=== PATIENT | male | born 1965 | race Hispanic/Latino ===

== ENCOUNTER 2019-06-16 15:37 | Emergency (ER) | payer OTHER ==
[~2019-06-16] VITALS: Ht 175.3 cm; Wt 99.8 kg
[~2019-06-16 15:37] MED LIST: ALLERGY RELIEF10 M4 PO; ALLOPURINOL100 MG PO; AMOXICILLIN500 MG PO; CARAFATE1 GM PO; CHLORTHALIDONE25 MG PO; CLARITHROMYCIN500 MG PO; COLCRYS0.6 MG PO; DULOXETINE HCL30 MG PO; FERROUS GLUCON324 M2 PO; LISINOPRIL10 MG PO; OMEPRAZOLE20 MG PO
[2019-06-16] MEDS ORDERED: ZYRTEC10 M3 PO (15:55)
[2019-06-16] MEDS ORDERED: SURFAK240 MG PO (15:56)
[2019-06-16] MEDS ORDERED: PAMELOR25 MG PO (15:57)
[2019-06-16] MEDS ORDERED: TIROSINT50 MCG PO (15:57)
[2019-06-16] MEDS ORDERED: FERROUS GLUCON324 M1 PO (15:58)
== END 2019-06-16 18:20 | disposition home or self-care (01) ==
LOC: ED 15:37
DX: K92.2 Gastrointestinal hemorrhage, unspecified (principal); D64.9 Anemia, unspecified; Z88.1 Allergy status to other antibiotic agents; Z88.8 Allergy status to other drugs, medicaments and biological substances; Z79.899 Other long term (current) drug therapy
CPT/HCPCS: 80053; 81001; 83690; 83735; 85025; 99284

== ENCOUNTER 2019-07-17 13:29 | Day surgery (SDC) | payer OTHER ==
[~2019-07-17] VITALS: Ht 175.3 cm; Wt 103.0 kg
--- NOTE | ~2019-07-17 | OR ---
[facility] [address], [place] [address] Draft DATE OF OPERATION: 07/17/2019 SURGEON: Ahsan Montes MD PREOPERATIVE DIAGNOSIS: Recurrent profound rectal bleeding (bright blood, painless). POSTOPERATIVE DIAGNOSES: 1. Normal-appearing colon and ileum up to 20 cm. 2. Internal hemorrhoids (possible source of bleeding, not actively bleeding now). PROCEDURE PERFORMED: Total colonoscopy to cecum with intubation of ileum approximately 20 cm. ANESTHESIA: Intravenous sedation, fentanyl 150 mcg and Versed 5 mg. INDICATION: This 53-year-old man is a prisoner at [facility]. He was evaluated by me in the past with upper endoscopy and colonoscopy for a decreased hematocrit (28.3 in April of 2019), elevated reticulocyte count 81.7. 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 Urgent upper endoscopy showed mild gastritis, but no sign of other abnormality or anything to account for anemia. His lowest hematocrit was 24.9 in April of 2019. He has had no hematemesis, but has had recurrent episodes a few days ago with bright blood per rectum. He is referred for urgent colonoscopy by Dr. Reynoso, his managing physician at [facility]. He understands the risks of bleeding, infection, and perforation related to colonoscopy and wished to proceed. FINDINGS: The prep was excellent. Complete colonoscopy was undertaken to the cecum. Intubation of the ileum was undertaken as well, almost to 20 cm, showing no sign of blood in the small bowel and no lesion of the ileum. The colon was entirely normal except for a retroflexed view, which demonstrated internal hemorrhoids, which were significant. They were not actively bleeding. It is my supposition that his anemia bleeding is from his hemorrhoids, however uncommon that maybe. DESCRIPTION OF PROCEDURE: The patient was brought to the endoscopy suite and placed in lateral decubitus position, given intravenous sedation to the point of slurred speech and nystagmus. Digital rectal PATIENT NAME: VITO PRESSLEY OPERATIVE REPORT DATE OF : 67 REPORT #: [id number] PHYSICIAN: AHSAN MONTES MD PCP: SRINIVASAN REYNOSO MD REPORT IS CONFIDENTIAL AND NOT TO BE RELEASED WITHOUT AUTHORIZATION [facility] [address], [place] [address] Draft examination was normal. An Olympus video colonoscope was passed in the rectum and manipulated throughout the colon. Impressive indeed was the level of the bowel prep, which was essentially perfect. The scope was ultimately advanced to the cecum. The ileocecal valve and appendiceal orifice were normal. The ileum was easily intubated and the scope passed as far as possible estimating at approximately 20 cm into the ileum showing no sign of blood upstream, no sign of lesions of the ileum. Scope was withdrawn ultimately to the cecum and then withdrawal of scope undertaken further. There was no abnormality of the entire colon and rectum except on retroflexed view, in which case there were hemorrhoidal changes and there were areas that seem to be erosive. There is certainly no sign of active bleeding at this time. The scope was straightened, withdrawn, and photographs were taken as the scope was withdrawn to the anal canal. The scope was removed and the patient taken to recovery room in good condition. CONCLUDING DIAGNOSES: Certainly possible is bright red rectal bleeding, which is profound related to hemorrhoids. Management could include internal hemorrhoidal banding in the office setting. We will review this with Dr. Reynoso. MD JANESSA Burks/CARLOS EDUARDO /[id number] cc: Srinivasan Reynoso MD Copies: SRINIVASAN REYNOSO MD ~ PATIENT NAME: VITO PRESSLEY OPERATIVE REPORT DATE OF : 67 REPORT #: [id number] PHYSICIAN: AHSAN MONTES MD PCP: SRINIVASAN REYNOSO MD REPORT IS CONFIDENTIAL AND NOT TO BE RELEASED WITHOUT AUTHORIZATION
[~2019-07-17 13:29] MED LIST changes: +FERROUS GLUCON324 M1 PO; +PAMELOR25 MG PO; +SURFAK240 MG PO; +TIROSINT50 MCG PO; +ZYRTEC10 M3 PO
--- NOTE | 2019-07-17 15:00 | NUR ---
07/17/19 1500 Sophy Cooley 2645-PATIENT ARRIVED TO PACU ON 2L NC DROWSY AROUSES TO VERBAL STIMULI ABDOMEN SOFT. GUARDS AT BEDSIDE. PATIENT DOZES BACK TO SLEEP.
== END 2019-07-17 15:42 | disposition home or self-care (01) ==
LOC: DS 13:29 → OPS 13:29 → DS 14:00 → OPS 14:00
PROVIDERS: Surgery
PROC: 0DJD8ZZ Inspection of Lower Intestinal Tract, Via Natural or Artificial Opening Endoscopic (ICD-10-PCS; principal; 2019-07-17 14:00)
DX: K64.8 Other hemorrhoids (principal); D50.9 Iron deficiency anemia, unspecified; I10 Essential (primary) hypertension; F32.9 Major depressive disorder, single episode, unspecified; G47.30 Sleep apnea, unspecified; A15.9 Respiratory tuberculosis unspecified
CPT/HCPCS: 99153; G0500; J2250; J3010; J7120

== ENCOUNTER 2021-03-01 12:56 | Observation (INO) | payer OTHER ==
[~2021-03-01] VITALS: Ht 175.3 cm; Wt 100.1 kg
--- NOTE | 2021-03-01 16:20 | NUR ---
Pt arrives to med surg floor via stretcher. 2 correctional officers alongside. Pt able to transfer self to bed SBA. Assessment and HX complete, VSS, pt A+O. pt reports chronic back pain, no pain related to admission diagnosis. IVF infusing WNL. Pt NPO. Reviewed plan of care, pt is agreeable. Oriented to room, no needs at this time. Call light within reach.
--- NOTE | 2021-03-01 19:15 | NUR ---
SHIFT REPORT RECEIVED FROM HARLEY GIBSON AT THIS TIME, pt AWAKE AND RESTING IN BED. [facility] GUARDS X2 ALSO IN ROOM. SCD'S IN PLACE. IV FLUIDS INFUSING PER MD ORDERS, SITE WNL. NO NEEDS VERBALIZED, CALL LIGHT IN REACH.
--- NOTE | 2021-03-01 20:07 | NUR ---
DIE TRY OUT WORKER STAMPING RN NOTIFIED OF NEED FOR BOWEL PREP. WILL BRING TO FLOOR SOON POSSIBLE.
--- NOTE | 2021-03-01 20:15 | NUR ---
ASSESSMENT COMPLETE, SCHEDULED MEDS GIVEN, SEE EMAR. IV FLUIDS INFUSING PER MD ORDERS, SITE WNL. BRISK BLOOD RETURN NOTED. pt A/OX4, VSS. I&O'S ALSO DONE AND STABLE. FRESH WATER AT BEDSIDE, NO FURTHER NEEDS VERBALIZED. CALL LIGHT IN REACH. [facility] GUARDS X2 IN ROOM.
--- NOTE | 2021-03-01 20:49 | NUR ---
FIRST BOWEL PREP BOTTLE MIXED AND PROVIDED TO PATIENT. INSTRUCTIONS PROVIDED. GUARDS IN ROOM.
--- NOTE | 2021-03-01 21:20 | NUR ---
SECOND HALF OF BOWEL PREP PROVIDED TO PATIENT. RESTING IN BED, GUARDS IN ROOM.
--- NOTE | 2021-03-01 22:00 | NUR ---
SCHEDULED TYLENOL GIVEN, SEE EMAR. pt DENIES PAIN, BUT REPORTS SOME DISCOMFORT/ABD CRAMPING D/T BOWEL PREP. NO FURTHER NEEDS, pt WORKING ON LAST HALF OF BOWEL PREP. CALL LIGHT IN REACH.
--- NOTE | 2021-03-01 22:15 | NUR ---
BOWEL PREP COMPLETE AT THIS TIME, NO ADDITIONAL NEEDS VERBALIZED. CALL LIGHT IN REACH.
--- NOTE | 2021-03-01 22:30 | NUR ---
POST-OP VSS, pt REMAINS IN RA, CPOX IN PLACE. DAUGHTER ALSO IN ROOM. pt'S FOREHEAD SWEATY, pt REPORTS FEELING WARM. AFEBRILE, EXCESS BLANKETS REMOVED AND THERMOMETER DECREASED. WET WASH CLOTH PROVIDED TO WIPE FACE. WILL MONITOR. pt DEMONSTRATED USE OF IS, REACHED 1250. NO FURTHER NEEDS, CALL LIGHT IN REACH.
--- NOTE | 2021-03-01 23:21 | NUR ---
CALL LIGHT ANSWERED, pt HAD VERY LARGE SOFT BUT FORMED STOOL AND UNMEASURED VOID X1. BROWN/GREEN IN COLOR, NO MINERVA BLOOD NOTED AT THIS TIME. WILL CONTINUE TO MONITOR. NO FURTHER NEEDS, [facility] GUARDS X2 ALSO IN ROOM. CALL LIGHT IN REACH.
--- NOTE | 2021-03-01 23:30 | NUR ---
POST-OP VSS, pt RESTING COMFORTABLY IN BED. DENIES NEEDS OR CONCERNS, CPOX IN PLACE. pt ON RA, RR EVEN AND UNLABORED. CALL LIGHT IN REACH.
--- NOTE | 2021-03-02 00:46 | NUR ---
pt RESTING IN BED, AWAKE. FRESH WATER PROVIDED, NO ADDITIONAL NEEDS. CALL LIGHT IN REACH. [facility] GUARDS IN ROOM.
--- NOTE | 2021-03-02 01:08 | NUR ---
CALL LIGHT ANSWERERED, pt HAD LIQUID BM, DARK GREEN IN COLOR. NO SIGNS OF BLOOD NOTED, WILL MONITOR. ALSO REPORTS UNMEASURED VOID. NO ADDITIONAL NEEDS VERBALIZED, CALL LIGHT IN REACH.
--- NOTE | 2021-03-02 01:25 | NUR ---
ASSESSMENT COMPLETE, NO NEW CHANGES OR CONCERNS. BOWEL TONES ACTIVE, pt DENIES NAUSEA. NEW BAG IV FLUIDS HUNG AND INFUSING PER MD ORDERS, SITE WNL. NO ADDITIONAL NEEDS, pt DECLINES SCD'S D/T COMPLETION OF BOWEL PREP AND GETTING OOB FOR BM'S. REPORTS 4/10 PAIN R/T HEADACHE, DECLINES NEED FOR COOL RAG, PAIN MEDICATION, ECT. CALL LIGHT IN REACH.
--- NOTE | 2021-03-02 03:35 | NUR ---
CALL LIGHT ANSWERED, 300MLS LIQUID GREEN BM NOTED WITH UNMEASURED URINE OUTPUT. pt DENIES ADDITIONAL NEEDS, CALL LIGHT IN REACH.
--- NOTE | 2021-03-02 05:45 | NUR ---
IN TO GET VITALS, PT HAS NO FURTHER OUTPUT AT THIS TIME, FRESH ICE WATER GIVEN, NO FURTHER NEEDS AT THIS TIME
--- NOTE | 2021-03-02 05:48 | NUR ---
scheduled tylenol given for 5/10 pain, see emar. iv pump cleared, infusing per md orders, site wnl. no additional needs, call light in reach.
--- NOTE | 2021-03-02 07:05 | NUR ---
dr ramires made aware of critical hemoglobin result, telephone order read back to type and cross 2 units prbc, do not give until notified by md. md also updated on stool characteristics, telephone order read back to give second dose of bowel prep and allow PT to drink until 0900. rosa geronimo aware and updated on orders. second dose bowel prep given at this time, see emar.
--- NOTE | 2021-03-02 07:20 | NUR ---
Report received from Nerissa LOYD. Pt resting in bed, IVF infusing WNL. Continues bowel prep prior to procedure. States no needs at this time. Call light in reach, will continue plan of care.
--- NOTE | 2021-03-02 08:11 | NUR ---
PT AWAKE IN ROOM. TWO GAURDS IN ROOM. WHITE BOARD UPDATED. PT DRINKING GATORADES. CALL LIGHT WITHIN REACH. NO FURTHER NEEDS AT THIS TIME.
--- NOTE | 2021-03-02 09:30 | NUR ---
IV medication administered, pt resting in bed and states having stomach cramping related to bowel prep. Continues to have green liquid BM. Order received for blood administration, consent signed and pt educated thoroughly about process. NPO at this time, call light in reach, will cont to monitor.
--- NOTE | 2021-03-02 09:55 | NUR ---
Blood adminstration started. VSS. Consent signed, pt educated and verbalizes understanding of process. Verified with second RN. Administration per protocol.
--- NOTE | 2021-03-02 10:29 | NUR ---
CASE MANAGEMENT ASSESSMENT COMPLETE. PATIENT CURRENTLY RESIDES AT [facility]. PATIENT IS ESTABLISHED WITH A PCP PROVIDED BY [facility] AND IS SEEN BY DR. MONTES IN [facility].
--- NOTE | 2021-03-02 11:00 | NUR ---
Blood administration rate increased as to meet MD ordered timeline. Verified with second RN. Pt is stable with no c/o transfusion reaction symptoms. Call light in reach, continuing to monitor
--- NOTE | 2021-03-02 12:45 | NUR ---
Blood transfusion complete, VSS and patient denies any signs of transfusion reaction. Pt educated about procedure and verbalizes understanding, all questions asked and concerns addressed. Preprocedure checklist complete. FREIGHT CAR REPAIRER arrives to take pt to procedure on stretcher.
--- NOTE | 2021-03-02 13:56 | NUR ---
03/02/21 1356 Sheets,Maru 1347 PT ARRIVED TO PACU ON 2L VIA NC, VSS. RESP EVEN AND UNLABORED. 1354 PT WAKES TO TACTILE STIMULI AND DENIES PAIN. PT REPORTS TIGHTNESS IN ABD, RN ENCOURAGES PT TO PASS GAS/AIR. PT EASILY FALLS BACK TO SLEEP AND SNORING NOTED.
--- NOTE | 2021-03-02 15:10 | NUR ---
Pt arrives to med surg floor after procedure, able to stand and ambulate to bed from stretcher. VSS. IVF infusing per order. Pt states 6/10 ABD discomfort related to passing gas/tightness. Scheduled tylenol administered, pt tolerates sips of water at this time. Reviewed plan of care to which pt is agreeable.
--- NOTE | 2021-03-02 15:45 | NUR ---
Rounded on patient, states he has been passing gas and is doing well overall. IVF infusing WNL. Eyes closed, even and unlabored respirations. Will continue to monitor.
--- NOTE | 2021-03-02 16:20 | NUR ---
Pt resting in bed with eyes closed. 2 officers in room with pt. No apparent needs at this time.
--- NOTE | 2021-03-02 18:11 | NUR ---
PT IS RESTING IN BED. CALL LIGHT WITHIN REACH. ONE GAURD IN ROOM. CALL LIGHT WITHIN REACH. NO FURTHER NEEDS AT THIS TIME.
--- NOTE | 2021-03-02 18:53 | NUR ---
Pt medicated with lisinopril per regular home order. Pt sitting at edge of bed, states feeling better after passing some gas. IVF infusing WNL. Pt has regular diet for dinner, encouraged to take it slow to prevent possible nausea, verbalizes understanding. no other needs at this time, call light in reach.
--- NOTE | 2021-03-02 19:47 | NUR ---
BEDSIDE REPORT RECEIVED FROM EVERT GIBSON. pt RESTING IN BED. IVF INFUSING WNL. NO REQUESTS AT THIS TIME. PHONE CALL TO , VERIFIED REGULAR DIET OKAY UP UNTIL PROCEDURE.
--- NOTE | 2021-03-02 22:00 | NUR ---
PATIENT ASSESSMENT COMPLETE. PATIENT PASSING GAS. REQUESTING SANDWICH BOX AND PUDDING. BOWEL TONES ACTIVE. ABD SOFT, TENDER WITH PALPATION. SCDS ON. ICE WATER REFILLED. IV SITE FLUSHED WNL, IVF INFUSING ORDERED. CALL LIGHT IN REACH. GUARDS IN ROOM.
--- NOTE | 2021-03-02 23:52 | NUR ---
CHECKED ON pt. RESTING IN BED WATCHING TV. SANDWICH BOX PROVIDED REQUESTED. GUARDS IN ROOM.
--- NOTE | 2021-03-03 02:34 | NUR ---
PATIENT RESTING IN BED WITH EYES CLOSED, APPEARS TO BE SLEEPING. GUARDS IN ROOM.
--- NOTE | 2021-03-03 05:55 | NUR ---
IV ALARM SOUNDING. PT WOKE TO SOUND, BUT CLOSED EYES IMMEDIATELY. 2 GUARDS PRESENT IN ROOM. NO OTHER NEEDS.
--- NOTE | 2021-03-03 06:13 | NUR ---
pt UP TO RESTROOM FOR VOID, SBA. BACK TO BED. ASSESSMENT COMPLETE. pt DENIES ANY PAIN. NO RECTAL BLEEDING NOTED. VSS. BOWEL TONES ACTIVE, pt REPORTS FLATUS. IVF INFUSING WNL ORDERED. pt C/O SLIGHT ROSAS, DENIES TO RATE PAIN. GUARDS IN ROOM.
--- NOTE | 2021-03-03 07:25 | NUR ---
Report received from Waleska LOYD. Pt resting in bed, IVF infusing WNL, states no needs or pain at this time. Call light in reach, will continue plan of care.
--- NOTE | 2021-03-03 08:55 | NUR ---
Scheduled meds administered, IVF infusing WNL. Pt assessment WNL, states passing gas and feeling generally well. Bowel tones active. No rectal bleeding noted per pt report. Dr Freeman in room to discuss today's procedure with pt. Call light in reach.
--- NOTE | 2021-03-03 11:35 | PATH ---
[facility] [address], [place] [address] Signed SPECIMEN(S): A DUODENUM SPECIMEN(S): B ANTRUM SPECIMEN(S): C ILEUM SPECIMEN SOURCE: A. DUODENUM B. ANTRUM C. ILEUM CLINICAL HISTORY: Anemia, history of stomach ulcer, hemorrhoids, rectal bleeding. Postop Dx: Normal upper scope; internal hemorrhoids. MICROSCOPIC DESCRIPTION: Histologic sections of all submitted blocks are examined by light microscopy. These findings, together with the gross examination, support the pathologic diagnosis. FINAL PATHOLOGIC DIAGNOSIS: A. Duodenum, biopsy: - Duodenal mucosa with no histopathologic abnormality. - Negative for increased intraepithelial lymphocytes or villous blunting. - Negative for dysplasia or malignancy. B. Stomach, antrum, biopsy: - Oxyntic mucosa with chronic, inactive gastritis. - Changes present as seen with proton pump inhibitor (PPI) therapy. - Negative for Helicobacter organisms on HE stain. - Negative for dysplasia or malignancy. C. Ileum, biopsy: - Ileal mucosa with no histopathologic abnormality. - Negative for active inflammation or granulomas. - Negative for dysplasia or malignancy. NAL:cml:C2NR GROSS DESCRIPTION: Three specimens are received in three containers labeled with "JR." A. The specimen, labeled "JR, 1," and designated on the requisition "duodenum biopsy," is received in formalin and consists of two fragments of pink-medley tissue (0.4 x 0.4 x 0.2 cm in aggregate). The specimen is submitted entirely in cassette (A1). B. The specimen, labeled "JR, 2," and designated on the requisition "antrum biopsy," is received in formalin and consists of three fragments of pink-medley PATIENT NAME: VITO PRESSLEY PATHOLOGY DATE OF : 67 REPORT #: [id number] PHYSICIAN: LYNETTE MEI PCP: TALITA ASH REPORT IS CONFIDENTIAL AND NOT TO BE RELEASED WITHOUT AUTHORIZATION [facility] [address], [place] [address] Signed tissue (0.3 x 0.3 x 0.1 cm in aggregate). The specimen is submitted entirely in cassette (B1). C. The specimen, labeled "JR, 3," and designated on the requisition "ileum biopsy," is received in formalin and consists of two fragments of pink-medley tissue (0.6 x 0.2 x 0.2 cm in aggregate). The specimen is submitted entirely in cassette (C1). AC (under the direct supervision of a pathologist) The Gross Description was prepared using a voice recognition system. The report was reviewed for accuracy; however, sound-alike word errors, addition and/or deletions may occur. If there is any question about this report, please contact Client Services. PERFORMING LABORATORY: The technical component was performed by [employer] [address] [place] [id number] (Corporate Paralegal: Yarely Love MD; CLIA# [id number]). Professional interpretation was performed by [employer], [address] [address] (CLIA# [id number]). Diagnostician: Angie Chin MD Pathologist Electronically Signed 03/03/2021 Copies: ~ PATIENT NAME: VITO PRESSLEY PATHOLOGY DATE OF : 67 REPORT #: [id number] PHYSICIAN: LYNETTE MEI PCP: TALITA ASH REPORT IS CONFIDENTIAL AND NOT TO BE RELEASED WITHOUT AUTHORIZATION
--- NOTE | 2021-03-03 12:13 | NUR ---
Rounded on patient, sitting up in bed eating lunch. Pt reports no nausea or pain. IVF infusing WNL. No needs at this time. Call light in reach.
--- NOTE | 2021-03-03 12:25 | NUR ---
PATIENT AWAITING PROCEDURE WITH DR. MONTES. NO CHANGES IN DISCHARGE PLANNING AT THIS TIME.
[2021-03-03] MEDS ORDERED: ACETAMINOPHEN500 MG PO (13:06)
[2021-03-03] MEDS ORDERED: METAMUCIL PACK3.4 GM PO (13:07)
[2021-03-03] MEDS ORDERED: MIRALAX17 GM PO (13:08)
--- NOTE | 2021-03-03 13:49 | NUR ---
PT LAST SET OF VITALS COMPLETE. PT READY FOR DC.
--- NOTE | 2021-03-03 13:52 | NUR ---
DISCHARGE TEACHING PROVIDED, ALL QUESTIONS ANSWERED AND CONCERNS ADDRESSED. VITALS TAKEN, STABLE. IV REMOVED, CATH INTACT. PT TAKEN TO [facility] VIA WHEELCHAIR, TWO CORRECTIONAL OFFICERS AT SIDE. [facility] CALLED FOR REPORT
--- NOTE | 2021-03-07 10:51 | OR ---
[facility] [address], [place] [address] Signed DATE OF OPERATION: 03/02/2021 SURGEON: Ahsan Montes MD PREOPERATIVE DIAGNOSES: 1. Enigmatic recurrent anemia. 2. Known history of internal hemorrhoids; last colonoscopy in 2019 without other lesions. POSTOPERATIVE DIAGNOSES: 1. Normal upper endoscopy. 2. Normal-appearing colon and ilium to 15 cm, but with large internal hemorrhoidal changes. PROCEDURES: 1. Esophagogastroduodenoscopy with biopsy. 2. Total colonoscopy to cecum with intubation of ileum. ANESTHESIA: Intravenous sedation; fentanyl 150 mcg, Versed 6 mg total. INDICATION: This 55-year-old man is a patient of Jacey Cameron and Bekah Ash at [facility]. In 2019, he underwent colonoscopy by pr, which showed only internal hemorrhoids, which were accounting for his anemia at that time. He was treated with iron supplementation, a fiber supplement and his anemia resolved. In the past several weeks, he was admitted to the infirmary at the [facility] under the direction of ERIC Mckinney, as he was noted to have episodic rectal bleeding. He was known to have bowel movement every 3 days and hard stool noted and severe pain upon defecation, highly suggestive of fissure. His hematocrit is running between 25 and 26, previously up to 40. He has had no hematemesis or blood per rectum. It was not bright, but rather dark. He came to the emergency room yesterday and was directly admitted as he was noted to have persistent anemia and said to have dark blood per rectum and no improvement while under close observation in the infirmary for the past 2 weeks. Admission to the hospital shown him to have a hematocrit now of 21.7. He has undergone 2-unit blood transfusion. He has undergone a bowel prep, is now to undergo upper endoscopy and colonoscopy to better characterize the problem and assess the source of his anemia. The risks of bleeding, infection, and perforation related to upper endoscopy and colonoscopy was reviewed. He understands and wished to proceed. Electronically Signed By: AHSAN MONTES MD 03/07/21 1051 PATIENT NAME: VITO PRESSLEY OPERATIVE REPORT DATE OF : 67 REPORT #: [id number] PHYSICIAN: AHSAN MONTES MD PCP: TALITA ASH REPORT IS CONFIDENTIAL AND NOT TO BE RELEASED WITHOUT AUTHORIZATION [facility] [address], [place] [address] Signed FINDINGS: Upper endoscopy was essentially normal. Esophagus, stomach, and duodenum showed no lesion to account for anemia. Biopsies were taken to assess for occult H. pylori findings as well as celiac disease. On colonoscopy, the prep was quite excellent. Complete colonoscopy was undertaken of the cecum and intubation of the ileum for at least 15 cm and more likely 20 cm was accomplished. There was no evidence of blood within the gastrointestinal tract including the ileum or colon. Retroflexed view did confirm significant internal hemorrhoidal changes. There was no sign of active bleeding, however. DESCRIPTION OF PROCEDURE: The patient was brought to the endoscopy suite and placed in lateral decubitus position after undergoing topical Hurricaine spray hypopharyngeal anesthesia. A bite block was placed and an Olympus video upper endoscope passed in the hypopharynx. The vocal cords were normal. Scope was advanced to the esophagus without problem. Esophagus was examined, which was normal. Stomach was entered and rugal folds appeared normal. Motility was normal. There was no sign of gastritis. The pylorus was normal and non-deformed. The scope was passed through the pylorus into the duodenum. Duodenum was normal in every way. I saw no evidence of celiac disease. All biopsies were obtained there to assess for that as a known etiology for occult anemia. Scope was withdrawn and biopsies taken of the antrum for both CHECO and pathologic testing. Retroflexed view was undertaken showing a good flap valve and no lesion in the proximal stomach. The scope was straightened and withdrawn and esophageal findings were entirely normal. No sign of inflammation, varices, stricture, or other problem. Further withdrawal showed no other abnormalities. Care was taken and examination of the area of the vallecular showing no sign of varices or other problem there. A plan was then made for colonoscopy. Additional sedation was given and digital rectal examination performed showing no fissure. The anorectal area was examined at the bedside yesterday with good lighting showing no fissure either. The Olympus video colonoscope was passed in the rectum and manipulated. Careful inspection of the anal canal again confirmed no sign of fissure, only internal hemorrhoids. The scope was manipulated throughout the colon, ultimately intubating the cecum. The ileocecal valve and appendiceal orifice were normal. With various maneuvers, the colonoscope was inserted into the ileum and passed a good distance at least 15 to 20 cm showing no sign of ulceration, neoplasm, or blood. Careful withdrawal of scope allowed for biopsy of the ileum to assess for occult inflammation. Upon entering the cecum, there was no findings of concern. The appendiceal orifice was normal. Careful withdrawal of scope throughout showed no sign of abnormality to account for anemia. Retroflexion in the rectum did confirm significant internal hemorrhoidal changes, no sign of active bleeding at this time. Scope was removed and the patient was taken to the recovery room in good condition. Electronically Signed By: AHSAN MONTES MD 03/07/21 1051 PATIENT NAME: VITO PRESSLEY OPERATIVE REPORT DATE OF : 67 REPORT #: [id number] PHYSICIAN: AHSAN MONTES MD PCP: TALITA ASH REPORT IS CONFIDENTIAL AND NOT TO BE RELEASED WITHOUT AUTHORIZATION [facility] [address] [place], [place] [address] Signed CONCLUDING DIAGNOSIS: His episodic bleeding and proven anemia would either be related to the internal hemorrhoids or an occult lesion in the small bowel, not excessful by conventional endoscopic or colonoscopic approaches. Consideration would be made for hemorrhoidal banding. He has been transfused 2 units of packed red cells today already and has no evidence of bleeding at this time. MD JANESSA Burks/LENAL /[id number] cc: ERIC Browning [facility] Copies: JACEY CAMERON ~ Electronically Signed By: AHSAN MONTES MD 03/07/21 1051 PATIENT NAME: VITO PRESSLEY OPERATIVE REPORT DATE OF : 67 REPORT #: [id number] PHYSICIAN: AHSAN MONTES MD PCP: TALITA ASH REPORT IS CONFIDENTIAL AND NOT TO BE RELEASED WITHOUT AUTHORIZATION
--- NOTE | 2021-03-07 10:51 | DS ---
[facility] [address], [place] [address] Signed ADMISSION DATE: 03/01/2021 DISCHARGE DATE: 03/03/2021 REASON FOR ADMISSION: This 55-year-old man is a prisoner at [facility] and has been in the [facility] setting for at least two weeks possibly a bit more. He is noted to have episodic rectal bleeding generally every three days, accompanied by constipation and some anal pain. He has maintained a hematocrit of about 26 and has been tested for his hematocrit routinely over the past two weeks. Notably, he underwent colonoscopy in 2019 as well as upper endoscopy in the past showing no lesion to account for episodic rectal bleeding except for internal hemorrhoids. He was taken to the emergency room due to more bleeding once again and concerns regarding this problem. A plan had been outlined for upper endoscopy and colonoscopy as an outpatient previously, but he presented to the emergency room and on that basis was admitted directly by me for further evaluation and care. PERTINENT PHYSICAL EXAMINATION: MUSCULAR: Somewhat overweight man, who looked to be in no distress. VITAL SIGNS: Temperature is 98.2, blood pressure 134/77, respirations 18, pulse 82 on room air, saturation 100%. CHEST: Clear. HEART: Regular without murmur. ABDOMEN: Mildly obese, but soft and nontender. Anorectal examination showed no sign of fissure. LAB STUDIES: Admission showed hematocrit 23.2, platelets 370,000. Chem profile normal. Protime 12.1, INR 0.9. COVID serology negative. HOSPITAL COURSE: Concern is maintained that this may represent a fissure as he had painful defecation, constipation and significant rectal bleeding episodically. Examination at the bedside showed no sign of fissure. The patient was found the following day after hydration and hematocrit of only 21. He did not have any bleeding during the course of his hospitalization however. A 2-unit transfusion was initiated on the basis of his low hematocrit and colonoscopy was performed on 03/02/2021 as well as upper endoscopy. Upper endoscopy showed no lesion to account for any rectal bleeding. Colonoscopy again showed no sign of polyps, colitis, diverticular disease, or other problem. Colonoscopy was undertaken into the ileum at least 15 cm, which was again normal and without sign of blood. Retroflexed view did Electronically Signed By: AHSAN MONTES MD 03/07/21 1051 PATIENT NAME: VITO PRESSLEY DISCHARGE SUMMARY DATE OF : 67 REPORT #: [id number] PHYSICIAN: AHSAN MONTES MD PCP: TALITA ASH REPORT IS CONFIDENTIAL AND NOT TO BE RELEASED WITHOUT AUTHORIZATION [facility] [address], [place] [address] Signed confirm internal hemorrhoids, which were rather large. On the basis of these findings, anoscopy and hemorrhoidal banding was undertaken on 03/03/2021. The right posterior and right anterior hemorrhoidal plexus was banded without problem. It is anticipated he will return to the assisted at this point. We will see him back in the assisted clinic in a month or so. He will be maintained with a fiber supplement such as Metamucil as well as MiraLAX on a daily basis. He is advised to avoid straining and certainly to avoid heavy lifting until that time I see him back at least. It is my supposition that his bleeding has been from hemorrhoids however uncommon that might be to cause severe anemia. If he does have significant recurrent bleeding, the lesion if not hemorrhoidal would have to be in the small bowel somewhat elaborate measures to identify that such as PillCam and so forth would have to be considered. He is advised that he will have sloughing of the two hemorrhoids in about four days and a brief amount of bleeding from that. DISCHARGE MEDICATIONS: 1. Tylenol 1000 mg q.8 hours p.r.n. pain #30. 2. Psyllium husk, Metamucil 3.4 g powder pack daily for hemorrhoids #30 refill 12. 3. MiraLAX 17 g powder pack daily to avoid constipation #30 refill 12. He will continue his usual medications include allopurinol 100 mg p.o. daily, duloxetine 30 mg b.i.d., ferrous gluconate 325 mg p.o. b.i.d., lisinopril 10 mg p.o. daily, chlorthalidone 25 mg p.o. daily, omeprazole 20 mg p.o. daily, cetirizine (Zyrtec) 10 mg p.o. daily. 4. Synthroid 50 mcg p.o. daily and nortriptyline (Pamelor) 25 mg p.o. at bedtime. He will hold for now the sucralfate and DSS. DISCHARGE DIAGNOSES: 1. Profound anemia, hematocrit 21 with ongoing episodic rectal bleeding. 2. Upper endoscopy and colonoscopy, negative, except for a large internal hemorrhoidal changes. 3. Distant history of reflux disease and peptic disease. 4. Hypothyroidism. 5. Gout. 6. Constipation. Ahsan Montes MD Electronically Signed By: AHSAN MONTES MD 03/07/21 1051 PATIENT NAME: VITO PRESSLEY DISCHARGE SUMMARY DATE OF : 67 REPORT #: [id number] PHYSICIAN: AHSAN MONTES MD PCP: TALITA ASH REPORT IS CONFIDENTIAL AND NOT TO BE RELEASED WITHOUT AUTHORIZATION [address] [place], [place] [address] Signed /CARLOS EDUARDO /[id number] cc: GABBY Horton FNP Copies: JACEY CAMERON ~ Electronically Signed By: AHSAN MONTES MD 03/07/21 1051 PATIENT NAME: VITO PRESSLEY DISCHARGE SUMMARY DATE OF : 67 REPORT #: [id number] PHYSICIAN: AHSAN MONTES MD PCP: TALITA ASH REPORT IS CONFIDENTIAL AND NOT TO BE RELEASED WITHOUT AUTHORIZATION
--- NOTE | 2021-03-07 10:51 | HP ---
[facility] [address] [place], [place] [address] Signed ADMISSION DATE: 03/01/2021 REASON FOR ADMISSION: Painful rectal bleeding with anemia (persistent). HISTORY OF PRESENT ILLNESS: This 55-year-old man is a prisoner at [facility]. He has been in the infirmary setting for at least two weeks, possibly a bit more. I [facility] at [facility] in my outpatient clinic at about that time. The patient is familiar to me from the past having had rectal bleeding in the past, for which he underwent colonoscopy in 2018 showing only internal hemorrhoidal changes. At that time, he was anemic with episodic bleeding. An upper endoscopy was performed as well on May 10, 2019, which showed no lesion to account for such bleeding. His colonoscopy on July 17, 2019, showed internal hemorrhoids and a normal-appearing colon and ileum as well. He was advised to maintain a high-fiber diet and if he were to have recurrent bleeding, consideration will be made for hemorrhoidal banding. His anemia recovered entirely with iron supplementation, and he had no further bleeding until recently. The reason for his presentation through the emergency room today was that of bright red rectal bleeding and worsening anemia with hematocrit of now 23, previously it was 26. He notes severe pain upon defecation. This was not the case when I saw him a few weeks ago in the clinic. He has a bowel movement every three days or so, associated with significant pain and bleeding. Notably, he has had labs drawn every 48 hours, which may indeed contribute to his anemia. He is said to have had stomach ulcer in the past, so it was not seen on my examination so far as can be told, though I have a hard time finding the operative report in the hospital record at this time. PAST MEDICAL HISTORY: Includes diabetes, hypertension, depression, and hypothyroidism. SOCIAL HISTORY: He does not smoke or use alcohol or nonsteroidal medications currently. CURRENT MEDICINES: Include: 1. Zyrtec. 2. DSS. 3. Synthroid. Electronically Signed By: AHSAN MONTES MD 03/07/21 1051 PATIENT NAME: VITO PRESSLEY HISTORY AND PHYSICAL DATE OF : 67 REPORT #: [id number] PHYSICIAN: AHSAN MONTES MD PCP: TALITA ASH-Kiya REPORT IS CONFIDENTIAL AND NOT TO BE RELEASED WITHOUT AUTHORIZATION [facility] [address] [place], [place] [address] Signed 4. Nortriptyline. 5. Allopurinol. 6. Duloxetine. 7. Ferrous gluconate. 8. Lisinopril. 9. Chlorthalidone. 10. Sucralfate. 11. Omeprazole. He does not have a fiber supplement listed in his medications. REVIEW OF SYSTEMS: He denies any hematemesis or dysphagia. Denies any family history of colon cancer. He has no chest pain. PHYSICAL EXAMINATION: GENERAL: Pleasant, man, who does not look to be in distress. He is wearing a mask. VITAL SIGNS: Temperature is 98.2, blood pressure 134/77, respirations 18, pulse 82, and room air saturation is 100%. NECK: Trachea is midline. CHEST: Clear. HEART: Regular, without murmur. ABDOMEN: Mildly obese, but soft and nontender. There is no focal mass or tenderness. There is no ascites. EXTREMITIES: Show no clubbing, cyanosis, or edema. LABORATORY STUDIES: Today show hematocrit of 23.2 and platelets 370,000. Chem profile is essentially normal, glucose 101. Liver enzymes normal. Coag studies show ProTime of 12.1 and INR is 0.9. COVID serology is still pending. ASSESSMENT AND PLAN: I suspected strongly that he had an anal fissure given pain upon defecation, rectal bleeding, and constipation; however, bedside examination with the aid of a flashlight shows no such finding of a fissure at this time. He clearly had internal hemorrhoids when seen on colonoscopy in 2019 in July. Perhaps that is the cause of his bleeding, but it would be an unlikely source of pain. I would recommend a full bowel prep today with a clear liquid diet, anticipating colonoscopy and concurrent upper endoscopy tomorrow. The risks of bleeding, infection, perforation, and so forth were reviewed with him in detail. He understands and wished to proceed. He will be able to have all the clear liquids, he wants at 08:00 a.m., but Electronically Signed By: AHSAN MONTES MD 03/07/21 1051 PATIENT NAME: VITO PRESSLEY HISTORY AND PHYSICAL DATE OF : 67 REPORT #: [id number] PHYSICIAN: AHSAN MONTES MD PCP: TALITA ASH REPORT IS CONFIDENTIAL AND NOT TO BE RELEASED WITHOUT AUTHORIZATION [facility] [address] [place] [id number] Signed nothing to have after 8:00 a.m. As regard to transfusion, he does not have strong indication for transfusion, mindful that he does have significant anemia at this time. The anemia has been more or less stable over the past few weeks under close observation and I would not expect any decline in his hematocrit in anyway particularly. MD JANESSA Burks/CARLOS EDUARDO /[id number] cc: ERIC Browning Dr. Copies: JACEY CAMERON ~ Electronically Signed By: AHSAN MONTES MD 03/07/211050 PATIENT NAME: VITO PRESSLEY HISTORY AND PHYSICAL DATE OF : 67 REPORT #: [id number] PHYSICIAN: AHSAN MONTES MD PCP: TALITA ASH REPORT IS CONFIDENTIAL AND NOT TO BE RELEASED WITHOUT AUTHORIZATION
--- NOTE | 2021-03-07 10:51 | OR ---
[facility] [address] [place], [place] [address] Signed DATE OF OPERATION: 03/03/2021 SURGEON: Ahsan Montes MD PREOPERATIVE DIAGNOSIS: Internal hemorrhoids, recent bleeding. POSTOPERATIVE DIAGNOSIS: Internal hemorrhoids, recent bleeding. PROCEDURE: 1. Anoscopy. 2. Internal hemorrhoidal banding x2 (right posterior and right anterior plexi). ANESTHESIA: None. INDICATION: This 55-year-old male was admitted by me to the hospital on March 01 with significant anemia related to episodic rectal bleeding. His evaluation in the hospital was included upper endoscopy and colonoscopy and the only finding to account for bleeding so far as could be told is significant internal hemorrhoidal changes. Banding has been recommended. The risk of bleeding, infection, failure to control any bleeding in the future, and other unforeseen complications was reviewed with him. He understands and wished to proceed. FINDINGS: Anoscopy demonstrated generous internal hemorrhoidal plexi in the right posterior and right anterior aspect dominantly to a lesser extent to the left lateral aspect. The bands were applied to the right posterior and right anterior plexi opening the two band limit for hemorrhoidal banding. DESCRIPTION OF PROCEDURE: The patient was brought to the operating room and placed in a prone position with the flexion of the bed and tilt. Digital rectal examination was undertaken showing no sign of fissure or other abnormality. An anoscope was applied and guided into the anal canal and positioned appropriately. Slight straining by the patient was undertaken demonstrating well internal hemorrhoidal plexi. The right posterior plexus appeared to be largest and with minimal ulceration. Pinch test was found to be negative. A band was applied to the right posterior hemorrhoidal plexus. Additional pinch test was Electronically Signed By: AHSAN MONTES MD 03/07/21 1051 PATIENT NAME: VITO PRESSLEY OPERATIVE REPORT DATE OF : 67 REPORT #: [id number] PHYSICIAN: AHSAN MONTES MD PCP: TALITA ASH REPORT IS CONFIDENTIAL AND NOT TO BE RELEASED WITHOUT AUTHORIZATION [facility] [address] [place], [place] [address] Signed undertaken of the right anterior plexus again without symptoms and upon pinch test the band was deployed to this plexus as well without problem. The patient had no complaints of pain, was returned to a supine position and transported out of the operating room promptly. Ahsan Montes MD JM/MODL /[id number] cc: . Dr. Copies: ~ Electronically Signed By: AHSAN MONTES MD 03/07/21 1051 PATIENT NAME: VITO PRESSLEY OPERATIVE REPORT DATE OF : 67 REPORT #: [id number] PHYSICIAN: AHSAN MONTES MD PCP: TALITA ASH REPORT IS CONFIDENTIAL AND NOT TO BE RELEASED WITHOUT AUTHORIZATION
== END 2021-03-03 13:59 | disposition home or self-care (01) ==
LOC: ED 12:56 → MS 12:59 → ED 15:36 → MS 15:37
PROVIDERS: ADMIT Surgery; ATTEND Surgery
PROC: 0DB68ZZ Excision of Stomach, Via Natural or Artificial Opening Endoscopic (ICD-10-PCS; principal; 2021-03-02 10:00)
PROC: 0DBB8ZZ Excision of Ileum, Via Natural or Artificial Opening Endoscopic (ICD-10-PCS; 2021-03-02 10:00)
PROC: 06LY4CC Occlusion of Hemorrhoidal Plexus with Extraluminal Device, Percutaneous Endoscopic Approach (ICD-10-PCS; 2021-03-03)
DX: K62.5 Hemorrhage of anus and rectum (principal); D64.9 Anemia, unspecified; K64.8 Other hemorrhoids; K62.89 Other specified diseases of anus and rectum; K29.50 Unspecified chronic gastritis without bleeding; K59.00 Constipation, unspecified; E11.9 Type 2 diabetes mellitus without complications; I10 Essential (primary) hypertension; K21.9 Gastro-esophageal reflux disease without esophagitis; E03.9 Hypothyroidism, unspecified; M10.9 Gout, unspecified; Z20.822 Contact with and (suspected) exposure to COVID-19; Z88.8 Allergy status to other drugs, medicaments and biological substances
CPT/HCPCS: 36415; 36430; 80053; 85025; 85610; 86850; 86900; 86901; 86920; 96374; 96376; 99153; 99284; C9803; G0378; G0500; J2250; J3010; J7121; P9016; U0003